=== PATIENT | male | born 1945 | race Caucasian/White ===

== ENCOUNTER → 2017-02-21 | Outpatient (CLI) | payer MEDICARE ==
--- NOTE | 2017-02-21 14:10 | RADIOLOGY REPORT (SQ) ---
EXAM DESCRIPTION: CTA HEAD; CTA NECK COMPLETED DATE/TIME: 02/21/2017 1:10 pm REASON FOR STUDY: CAROTID STENOSIS (I65.23) I65.23 OCCLUSION AND STENOSIS OF BILATERAL CAROTID HOLA EZIO COMPARISON: No prior brain imaging TECHNIQUE: Post IV contrast scanning, thin section axial imaging through the carotid system in the n [place] in the brain to evaluate the arterial structures. Source and MIP images are saved and reviewed on PACS. Advanced 3D imaging as volume-rendering, MIPs, SSD performed? yes All CT scanners at this facility use dose modulation, iterative reconstruction, and/or weight based d osing when appropriate to reduce radiation dose to as low as reasonably achievable (ALARA). [facility]: Dose Right [facility]: CareDose [facility]: Dose Right [facility]: Teradose 4D [facility]: [employer] CONTRAST TYPE AND DOSE: contrast/concentration: Isovue 370.00 mg/ml; Total Contrast Delivered: 80.0 ml; Total Saline Delivered: 75.0 ml RENAL FUNCTION: Creatinine 1.4 LIMITATIONS: None. FINDINGS: Aortic arch and origin of great vessels: Visualized aortic arch is normal, without evidence for thoracic aortic dissection. There is 50% narr owing of the proximal left subclavian artery at its origin from calcific plaque, best shown on axial images 18-22, and sagittal reconstruction images 72-76. Brachiocephalic artery, left common carotid artery are patent. Right carotid system: The right brachiocephalic artery, right common carotid artery are unremarkable. At the right carotid bifurcation, calcific plaque is present at the origin of the right internal patel tid artery with greater than 70% diameter stenosis on vascular diameter measurements, stenosis more c losely approximates 90%. Remainder of the cervical internal carotid artery is patent. External patel tid artery branches are patent. Left carotid system: Origin of the left arm carotid off the aorta is unremarkable. Left common carotid artery is unremark able. There is calcific plaque at the left carotid bifurcation with less than 50% diameter narrowing, best shown on sagittal reconstruction images 80-83, and axial images 52-59. Remainder of the cervical int ernal carotid artery is unremarkable. External carotid artery branches are patent. Extracranial vertebral arteries: On the right side, the vertebral artery is dominant, and widely patent from its origin to the skullba se. As the right vertebral artery enters the cranium, there is irregular atherosclerotic plaque caus ing at least 50% diameter narrowing best shown on axial images 81-84. On the left side, the origin of the vertebral artery is patent. At the level of the left C4-5 facet joint, there is very bulky bony spurring skullbase extrinsic compression of the left cervical vertebr al artery with greater than 70% narrowing. This is best shown on axial images 56-62, and sagittal re construction images 72-75. [place]: The anterior, middle, posterior cerebral arteries are all patent. No evidence of a neurysm or focal stenosis. POSTERIOR CIRCULATION: Right intracranial vertebral artery has about 50% diameter narrowing as it cr osses into the intracranial space as above. Remainder of the intracranial vertebral arteries are pat ent as is the basilar artery. No aneurysm. BRAIN: No gross enhancing lesions as visualized. The superior cerebral hemispheres are not included in the field of view. BONES: Intact as visualized. SINUSES: No fluid or mucosal thickening. OTHER: 5 to 6 mm nodule right lung apex axial image 23. IMPRESSION: Critical stenosis right carotid bifurcation with close to 90% proximal right ICA narrowi ng from calcific plaque No significant left carotid bifurcation stenosis 50% diameter narrowing right vertebral artery as it enters the cranial cavity Greater than 70% narrowing left cervical vertebral artery at the level of the left C4-5 facet from bu lky bony spurring COMMENT: Pertinent findings on the imaging study reported as a CRITICAL RESULT to CLINT HINTON MD at13:40 on 02/21/2017. Category of Critical Result: Critical stenosis right carotid bifurcation TECHNICAL DOCUMENTATION: JOB ID: [id number] Quality ID # [id number]: Final reports with documentation of one or more dose reduction techniques (e.g., Au tomated exposure control, adjustment of the mA and/or kV according to patient size, use of iterative reconstruction technique) 2010 [employer]- All Rights Reserved
--- NOTE | 2017-02-21 14:10 | RADIOLOGY REPORT (SQ) ---
EXAM DESCRIPTION: CTA HEAD; CTA NECK COMPLETED DATE/TIME: 02/21/2017 1:10 pm REASON FOR STUDY: CAROTID STENOSIS (I65.23) I65.23 OCCLUSION AND STENOSIS OF BILATERAL CAROTID HOLA EZIO COMPARISON: No prior brain imaging TECHNIQUE: Post IV contrast scanning, thin section axial imaging through the carotid system in the [place] in the brain to evaluate the arterial structures. Source and MIP images are saved and reviewed on PACS. Advanced 3D imaging as volume-rendering, MIPs, SSD performed? yes All CT scanners at this facility use dose modulation, iterative reconstruction, and/or weight based d osing when appropriate to reduce radiation dose to as low as reasonably achievable (ALARA). [facility]: Dose Right [facility]: CareDose [facility]: Dose Right [facility]: Teradose 4D [facility]: [employer] CONTRAST TYPE AND DOSE: contrast/concentration: Isovue 370.00 mg/ml; Total Contrast Delivered: 80.0 ml; Total Saline Delivered: 75.0 ml RENAL FUNCTION: Creatinine 1.4 LIMITATIONS: None. FINDINGS: Aortic arch and origin of great vessels: Visualized aortic arch is normal, without evidence for thoracic aortic dissection. There is 50% narr owing of the proximal left subclavian artery at its origin from calcific plaque, best shown on axial images 18-22, and sagittal reconstruction images 72-76. Brachiocephalic artery, left common carotid artery are patent. Right carotid system: The right brachiocephalic artery, right common carotid artery are unremarkable. At the right carotid bifurcation, calcific plaque is present at the origin of the right internal patel tid artery with greater than 70% diameter stenosis on vascular diameter measurements, stenosis more c losely approximates 90%. Remainder of the cervical internal carotid artery is patent. External patel tid artery branches are patent. Left carotid system: Origin of the left arm carotid off the aorta is unremarkable. Left common carotid artery is unremark able. There is calcific plaque at the left carotid bifurcation with less than 50% diameter narrowing, best shown on sagittal reconstruction images 80-83, and axial images 52-59. Remainder of the cervical int ernal carotid artery is unremarkable. External carotid artery branches are patent. Extracranial vertebral arteries: On the right side, the vertebral artery is dominant, and widely patent from its origin to the skullba se. As the right vertebral artery enters the cranium, there is irregular atherosclerotic plaque caus ing at least 50% diameter narrowing best shown on axial images 81-84. On the left side, the origin of the vertebral artery is patent. At the level of the left C4-5 facet joint, there is very bulky bony spurring skullbase extrinsic compression of the left cervical vertebr al artery with greater than 70% narrowing. This is best shown on axial images 56-62, and sagittal re construction images 72-75. [place]: The anterior, middle, posterior cerebral arteries are all patent. No evidence of a neurysm or focal stenosis. POSTERIOR CIRCULATION: Right intracranial vertebral artery has about 50% diameter narrowing as it cr osses into the intracranial space as above. Remainder of the intracranial vertebral arteries are pat ent as is the basilar artery. No aneurysm. BRAIN: No gross enhancing lesions as visualized. The superior cerebral hemispheres are not included in the field of view. BONES: Intact as visualized. SINUSES: No fluid or mucosal thickening. OTHER: 5 to 6 mm nodule right lung apex axial image 23. IMPRESSION: Critical stenosis right carotid bifurcation with close to 90% proximal right ICA narrowi ng from calcific plaque No significant left carotid bifurcation stenosis 50% diameter narrowing right vertebral artery as it enters the cranial cavity Greater than 70% narrowing left cervical vertebral artery at the level of the left C4-5 facet from bu lky bony spurring COMMENT: Pertinent findings on the imaging study reported as a CRITICAL RESULT to CILNT HINTON MD at13:40 on 02/21/2017. Category of Critical Result: Critical stenosis right carotid bifurcation TECHNICAL DOCUMENTATION: JOB ID: [id number] Quality ID # [id number]: Final reports with documentation of one or more dose reduction techniques (e.g., Au tomated exposure control, adjustment of the mA and/or kV according to patient size, use of iterative reconstruction technique) 2010 [employer]- All Rights Reserved
== END ==
LOC: RAD 12:25
PROVIDERS: ATTEND Internal Medicine Cardiovascular Disease
DX: I65.23 Occlusion and stenosis of bilateral carotid arteries (principal)
CPT/HCPCS: 70496; 70498; 82565

== ENCOUNTER → 2017-12-14 | Outpatient (CLI) | payer MEDICARE ==
[~2017-12-14] MED LIST: REGADENOSON INJ 0.4 MG/5 ML DISP.SYRIN IV ONE
--- NOTE | 2017-12-14 17:24 | DRAGON STRESS TEST REPORT ---
Intravenous Lexiscan Cardiolite stress test using single photon emmision computerized tomography. Date of procedure: 12/14/2017. Ordering Provider: Dr. Sukhwinder Banks. Patient's status: Out Patient. Indication: Coronary artery disease. Coronary risk factors: Age, diabetes, and hypertension. Resting EKG: Sinus Rhythm. Poor R-wave progression leads V1 to V6. T inversion in lead aVL. Stress EKG: No changes of ischemia. Reason for termination: Protocol. The patient had no chest pain or discomfort, and there were no arrhythmias seen. Conclusions: Normal EKG and hemodynamic response to IV Lexiscan. Nuclear data: At rest the patient was given 10.53 millicuries of technetium 99m sestamibi injected intravenously. As per protocol rest non gated SPECT images were obtained. Subsequently the patient was given intravenous Lexiscan at a dose of 0.4 mg in 5 mL intravenously, followed by flush with normal saline. Subsequently the stress dose of 30.0 millicuries of technetium 99m sestamibi was injected intravenously. As per protocol stress gated images were obtained. Nuclear interpretation: Review of images showed that all segments of the myocardium had normal perfusion at rest, and normal perfusion post stress with IV Lexiscan. All segments of the myocardium had normal motion, contraction, and thickening by gated study. T. I D. ratio was normal at 1.05. Computer read rest, and stress left ventricular ejection fraction were 58 %, and 53 %, respectively. Visually both the stress and rest ejection fractions were normal, and greater than 55%. Conclusion: 1. There is no scintigraphic evidence of Lexiscan induced myocardial ischemia. 2. There is no scintigraphic evidence of myocardial infarction/scar. Recommendations: Aggressive risk factor modification, and treating the underlying co- morbidities. MTDD
== END ==
LOC: RAD 07:42
PROVIDERS: ATTEND Family Medicine
DX: I25.84 Coronary atherosclerosis due to calcified coronary lesion (principal)
CPT/HCPCS: 93017; 78452; A9500; J2785; Q9969

== ENCOUNTER 2018-10-02 06:50 | Day surgery (SDC) | payer MEDICARE ==
[~2018-10-02 06:50] MED LIST changes: +BUPIVACAINE HCL 0.75% INJ/PF (7.5 MG/1 ML) 10 ML SDV OD PRN; +DORZOLAMIDE HCL 2%/TIMOLOL MALEAT 0.5% OPH SOLN 10 ML OD PRN; +KETOROLAC TROMETHAMINE 0.45% 4 DROP/0.4 ML DROPERETTE OD PRN; +LIDOCAINE 4% INJ/PF (40 MG/ML) 5 ML AMPUL OD PRN; -REGADENOSON INJ 0.4 MG/5 ML DISP.SYRIN IV ONE
[2018-10-02] MEDS: TETRACAINE HCL 0.5% OPH SOLN 0.6 ML DROPERETTE OD PRN ×2 (07:18→07:42)
[2018-10-02] MEDS: CYCLOPENTOLATE 0.2%/PHENYLEPHRINE 1% OPH SOLN 2 ML OD PRN ×3 (07:19→07:41)
[2018-10-02] MEDS: TROPICAMIDE 1% OPH SOLN 3 ML OD PRN ×3 (07:19→07:41)
[2018-10-02] MEDS: BESIFLOXACIN HCL 0.6% OPH SUSP 5 ML BOTTLE OD PRN ×3 (07:19→08:30)
[2018-10-02] MEDS ORDERED: FENTANYL CITRATE INJ/PF 100 MCG/2 ML AMPUL ONE (08:09)
[2018-10-02] MEDS ORDERED: MIDAZOLAM 2 MG/2 ML INJ ONE (08:09)
[2018-10-02] MEDS ORDERED: CHONDR SU A NA/HYALUR INTRAOC KIT (SURGICARE) ONE (08:20)
[2018-10-02] MEDS ORDERED: LIDOCAINE 1% INJ-PF (10 MG/ML) 30 ML SDV ONE (08:20)
[2018-10-02] MEDS ORDERED: EPINEPHRINE INJ/PF 1 MG/1 ML AMPULE ONE (08:20)
--- NOTE | 2018-10-02 08:48 | [facility] OPERATIVE REPORT E ---
[facility] Operative Report NAME: RAHEEM DIAZ AGE: 73Y DATE OF SURGERY: 10/02/2018 ROOM: PREOPERATIVE DIAGNOSIS: Cataract, right eye. POSTOPERATIVE DIAGNOSIS: Cataract, right eye. PROCEDURE PERFORMED: Phacoemulsification with posterior chamber intraocular lens, right eye. SURGEON: MILLER LORD M.D. ANESTHESIA: Topical with MAC. INDICATIONS FOR SURGERY: Difficulty reading road signs. PROCEDURE: The patient was brought to the operating room and placed on the operative table. Following tetracaine drops, topical anesthesia was administered. This consisted of instrument wipe pledgets soaked in a solution of 4% Xylocaine mixed with 0.75% Marcaine in a 1:2 ratio. A 2 x 1 cm pledget was placed in the superior fornix. A 1 x 1 cm pledget was placed in the inferior fornix. The eye was patched shut for 5 minutes. The patch was removed. The eye was sterilely prepped and draped in the usual manner. Lid speculum was placed in the eye. The pledgets were removed and 4-0 black silk sutures were placed around the superior and the inferior rectus muscles to be used as traction. A conjunctival peritomy was made at the 10 o'clock position. Hemostasis was obtained with bipolar cautery. A posterior limbal groove was created using a crescent knife and dissected anteriorly towards the cornea. A sharp point blade was used to create a paracentesis site at the 2 o'clock position. A 2.4 mm keratome was used to enter the anterior chamber through the groove. Viscoelastic was injected into the anterior chamber. An anterior capsulotomy was performed using Utrata forceps in a capsulorrhexis fashion. Hydrodissection and hydrodelineation were performed. Phacoemulsification was performed in [id number] technique. Total phaco time was 12.75 CDE. Following this, the I/A unit was used to remove residual cortex. Viscoelastic was injected into the capsular bag. Intraocular lens model SN60WF, 23.0 diopters, serial number [id number], was placed in the capsular bag. The I/A unit was used to remove residual viscoelastic. The wound was seen to be watertight under high and low pressure, and no sutures were placed. The intraocular lens was well centered. The pressure was adjusted in the eye to normal pressure. The 4-0 black silk sutures and lid speculum were removed. The eye was shielded after Besivance drops were placed. The patient tolerated the procedure well and was sent to the recovery room in good condition. DICTATING PHYSICIAN: MILLER LORD M.D. [id number] PHY#: [id number] ID: [id number] JOB#: [id number] ACCT: [id number] cc:MILLER LORD M.D. >
--- NOTE | 2018-10-02 08:48 | [facility] DISCHARGE SUMMARY E ---
[facility] Discharge Summary NAME: RAHEEM DIAZ AGE: 73Y ADMITTED: 10/02/2018 DISCHARGED: 10/02/2018 FINAL DIAGNOSIS: Cataract, right eye. HOSPITAL COURSE: The patient is a 73-year-old gentleman who underwent uneventful cataract extraction with intraocular lens implant, right eye, on 10/02/2018. He will be discharged to home. He was instructed to resume preoperative medications; to take Tylenol as needed for discomfort; to keep his eye shielded; to use Durezol, Prolensa, and Besivance at 3 p.m. and 8 p.m.; and to follow up in my office in 1 day. DICTATING PHYSICIAN: MILLER LORD M.D. [id number] PHY#: [id number] ID: [id number] JOB#: [id number] ACCT: [id number] cc:MILLER LORD M.D. >
== END 2018-10-02 09:17 | disposition home or self-care (01) ==
LOC: SC 06:50
PROVIDERS: ATTEND Ophthalmology
DX: H25.811 Combined forms of age-related cataract, right eye (principal); J44.9 Chronic obstructive pulmonary disease, unspecified; I10 Essential (primary) hypertension; E11.9 Type 2 diabetes mellitus without complications; E07.9 Disorder of thyroid, unspecified; G47.30 Sleep apnea, unspecified; Z79.51 Long term (current) use of inhaled steroids; Z87.891 Personal history of nicotine dependence; Z79.899 Other long term (current) drug therapy; Z79.84 Long term (current) use of oral hypoglycemic drugs
CPT/HCPCS: 66984; 82962; V2632; J2250; J3490 ×4; A9270; J0171; J3010; 142

== ENCOUNTER 2019-03-16 08:37 | Emergency (ER) | payer MEDICARE ==
--- NOTE | 2019-03-16 09:16 | ER Document Report ---
ED General - General Chief Complaint: Possible Kidney Stone Stated Complaint: FLANK PAIN Time Seen by Provider: 03/16/19 09:15 Primary Care Provider: TERENCE VALERIO MD [Primary Care Provider] - Follow up as needed TRAVEL OUTSIDE OF THE [place] IN LAST 30 DAYS: No - HPI Notes: 74 y/o presenting to ED for evaluation of 1 day of left flank pain after falling onto his left flank he has a h/o kidney stones and notes that his pain has been similar to a kidney stone and wanted to be sure he didn't have another stone because he has been told he he has a stone with horns on it no fever some nausea but no vomiting no blood in urine or pain w/ urination no bruising or skin changes to flank - Related Data Allergies/Adverse Reactions: No Known Allergies Allergy (Verified 03/16/19 08:39) Past Medical History - Social History Smoking Status: Unknown if Ever Smoked Family History: Reviewed & Not Pertinent - Past Medical History Cardiac Medical History: Reports: Hx Hypertension Denies: Hx Heart Attack Pulmonary Medical History: Denies: Hx Asthma Neurological Medical History: Denies: Hx Cerebrovascular Accident, Hx Seizures GI Medical History: Denies: Hx Hepatitis, Hx Hiatal Hernia, Hx Ulcer Infectious Medical History: Denies: Hx Hepatitis Past Surgical History: Denies: Hx Open Heart Surgery, Hx Pacemaker Review of Systems - Review of Systems Constitutional: No symptoms reported EENT: No symptoms reported Cardiovascular: No symptoms reported Respiratory: No symptoms reported Gastrointestinal: Abdominal pain, Nausea Genitourinary: No symptoms reported Male Genitourinary: No symptoms reported Musculoskeletal: No symptoms reported Skin: No symptoms reported Hematologic/Lymphatic: No symptoms reported Neurological/Psychological: No symptoms reported Physical Exam - Vital signs Vitals: Temp Pulse Resp BP Pulse Ox 98.3 F 98 16 130/84 H 97 03/16/19 08:42 03/16/19 08:42 03/16/19 08:42 03/16/19 08:42 03/16/19 08:42 Interpretation: Normal - General General appearance: Appears well, Alert - HEENT Head: Normocephalic, Atraumatic Eyes: Normal Pupils: PERRL - Respiratory Respiratory status: No respiratory distress Chest status: Nontender Breath sounds: Normal Chest palpation: Normal - Cardiovascular Rhythm: Regular Heart sounds: Normal auscultation Murmur: No - Abdominal Inspection: Normal Distension: No distension Bowel sounds: Normal Tenderness: Nontender Organomegaly: No organomegaly Notes: left flank pain to palpation - Back Back: Normal, Nontender - Extremities General upper extremity: Normal inspection, Nontender, Normal color, Normal ROM, Normal temperature General lower extremity: Normal inspection, Nontender, Normal color, Normal ROM, Normal temperature, Normal weight bearing. No: Yohana's sign - Neurological Neuro grossly intact: Yes Cognition: Normal Orientation: AAOx4 [place] Coma Scale Eye Opening: Spontaneous [place] Coma Scale Verbal: Oriented [place] Coma Scale Motor: Obeys Commands [place] Coma Scale Total: 15 Speech: Normal Motor strength normal: LUE, RUE, LLE, RLE Sensory: Normal - Psychological Associated symptoms: Normal affect, Normal mood - Skin Skin Temperature: Warm Skin Moisture: Dry Skin Color: Normal Course - Re-evaluation Re-evalutation: 03/16/19 13:27 CT w/ staghorn calculus w/ atrophic kidney mild renal insufficiency from baseline w/ mild hyperkalemia - hydration should help with this while in ED pain controlled given ivf and rocephin in ED discussed w/ Isabela Mena urology who agrees that the staghorn stone can be followed as outpt given that kidney is atrophic behind it will dc w/ cefdinir 03/16/19 13:37 - Vital Signs Vital signs: Temp Pulse Resp BP Pulse Ox 98.3 F 98 16 130/84 H 97 03/16/19 08:42 03/16/19 08:42 03/16/19 08:42 03/16/19 08:42 03/16/19 08:42 - Laboratory Result Diagrams: 03/16/19 10:35 03/16/19 10:35 Laboratory results interpreted by me: 03/16/19 03/16/19 03/16/19 10:35 10:35 10:35 RBC 4.00 L Hgb 12.3 L Hct 36.4 L Potassium 5.2 H Chloride 109 H Carbon Dioxide 18 L BUN 67 H Creatinine 2.26 H Est GFR ( Amer) 34 L Est GFR (MDRD) Non-Af 28 L Lipase 436.1 H Urine Protein 30 H Urine Blood LARGE H Ur Leukocyte Esterase MODERATE H Urine Ascorbic Acid 40 H - Diagnostic Test Radiology reviewed: Reports reviewed Discharge - Discharge Clinical Impression: Elevated blood pressure reading UTI (urinary tract infection) Qualifiers: Urinary tract infection type: acute cystitis Hematuria presence: with hematuria Qualified Code(s): N30.01 - Acute cystitis with hematuria CKD (chronic kidney disease) Qualifiers: Chronic kidney disease stage: unspecified stage Qualified Code(s): N18.9 - Chronic kidney disease, unspecified Pancreatitis Qualifiers: Chronicity: acute Pancreatitis type: idiopathic Condition: Stable Disposition: HOME, SELF-CARE Additional Instructions: follow up with urology as an outpatient return to the ED with worsening take medicine as directed Prescriptions: Ondansetron [Zofran Odt 4 mg Tablet] 1 - 2 tab PO Q4HP PRN #10 tab.rapdis PRN Reason: Cefdinir [Omnicef 300 mg Capsule] 1 cap PO BID #20 capsule Referrals: TERENCE VALERIO MD [Primary Care Provider] - Follow up as needed
--- NOTE | 2019-03-16 10:00 | RADIOLOGY REPORT (SQ) ---
EXAM DESCRIPTION: CT ABD/PELVIS NO ORAL OR IV COMPLETED DATE/TIME: 03/16/2019 9:42 am REASON FOR STUDY: calculus of ureter COMPARISON: None. TECHNIQUE: CT scan of the abdomen and pelvis performed without intravenous or oral contrast. Images reviewed with lung, soft tissue, and bone windows. Reconstructed coronal and sagittal MPR images revi ewed. All images stored on PACS. All CT scanners at this facility use dose modulation, iterative reconstruction, and/or weight based d osing when appropriate to reduce radiation dose to as low as reasonably achievable (ALARA). [facility]: Dose Right [facility]: CareDose [facility]: Dose Right [facility]: Teradose 4D [facility]: [employer] RADIATION DOSE: CT Rad equipment meets quality standard of care and radiation dose reduction techniq ues were employed. CTDIvol: 9.9 mGy. DLP: 582 mGy-cm.mGy. LIMITATIONS: None. FINDINGS: LOWER CHEST: Moderate to severe atherosclerotic calcification of the coronary arteries and aortic annulus. There is no pericardial effusion. Pleural calcifications - correlate for prior history of asbestos exposure. There are calcified nodul es in the right middle, right lower, and left lower lobe. There is no basilar consolidation or pleur al effusion. NON-CONTRASTED LIVER, SPLEEN, ADRENALS: Evaluation is limited due to the absence of intravenous contr ast. The liver morphology is non cirrhotic. There is a punctate calcification in the hepatic dome. The spleen is normal in size. There is no abnormality of the adrenal glands. PANCREAS: There is no abnormality of the pancreas. GALLBLADDER: No abnormality that is apparent on CT. RIGHT KIDNEY AND URETER: Evaluation is limited due to the absence of intravenous contrast. The corti darwin based hypodense lesions in the upper and lower poles measure simple fluid attenuation and could r epresent simple cyst. There is no hydronephrosis, nephrolithiasis, hydroureter or ureterolithiasis. LEFT KIDNEY AND URETER: Evaluation is limited due to the absence of intravenous contrast. There is a symmetric renal atrophy and a staghorn calculus in the renal pelvis that measures up to 3.4 x 3.1 cm on the coronal plane. There is no hydroureter or ureterolithiasis. AORTA AND RETROPERITONEUM: Atherosclerotic calcification of the abdominal aorta without aneurysmal di latation. There is no enlarged retroperitoneal adenopathy. BOWEL AND PERITONEAL CAVITY: Colonic diverticulosis without other findings of acute diverticulitis. There is no obstruction, bowel wall thickening, or pericolonic/ perienteric inflammation. There is n o free intraperitoneal fluid or mesenteric adenopathy. APPENDIX: Surgically absent. PELVIS, BLADDER, AND ABDOMINAL WALL:Evaluation of the pelvis is limited due to the artifact from the right ALEJANDRO. The prostate gland is normal in size. The urinary bladder is partially distended and nor mal in appearance. There is no pelvic adenopathy, free fluid or mass. There is a miniscule fat cont aining umbilical hernia. 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 There is no frac ture. OTHER: No other finding. IMPRESSION: 1. No acute intra-abdominal abnormality. 2. Pleural calcifications - correlate for history of asbestos exposure. 3. Staghorn calculus in the left kidney that measures up to 3.4 x 3.1 cm and is associated with atro phy of the renal parenchyma. 4. Colonic diverticulosis without other ancillary findings to suggest an acute diverticulitis. COMMENT: Quality ID # [id number]: Final reports with documentation of one or more dose reduction techniques (e.g., Automated exposure control, adjustment of the mA and/or kV according to patient size, use of iterative reconstruction technique) TECHNICAL DOCUMENTATION: JOB ID: [id number] [employer]- All Rights Reserved Reading location - IP/workstation name: [email or web address]
[2019-03-16 10:51] LABS: ABSOLUTE EOSINOPHILS # (AUTO) 0.2 10^3/uL (0.0-0.6); ABSOLUTE LYMPHOCYTES (AUTO) 1.2 10^3/uL (0.5-4.7); ABSOLUTE MONOCYTES (AUTO) 0.8 10^3/uL (0.1-1.4); ABSOLUTE NEUT (AUTO) 4.2 10^3/uL (1.7-8.2); BASOPHILS % (AUTO) 0.2 % (0-2); EOSINOPHILS % (AUTO) 3.2 % (0-6); HEMATOCRIT 36.4 % (37.9-51.0); HEMOGLOBIN 12.3 g/dL (13.5-17.0); LYMPHOCYTES % (AUTO) 19.3 % (13-45); MEAN CORPUSCULAR HEMOGLOBIN 30.7 pg (27.0-33.4); MEAN CORPUSCULAR HGB CONC 33.8 g/dL (32.0-36.0); MEAN CORPUSCULAR VOLUME 91 fl (80-97); MONOCYTES % (AUTO) 11.7 % (3-13); PLATELET COUNT 208 10^3/uL (150-450); RED CELL DISTRIBUTION WIDTH 12.6 % (11.5-14.0); SEGMENTED NEUTROPHILS % (AUTO) 65.6 % (42-78); TOTAL CELLS COUNTED % (AUTO) 100 %; WHITE BLOOD COUNT 6.4 10^3/uL (4.0-10.5)
[2019-03-16 11:03] LABS: APPEARANCE,URINE SLIGHTLY-CLOUDY; BILIRUBIN,URINE NEGATIVE (NEGATIVE); COLOR,URINE YELLOW; GLUCOSE, URINE NEGATIVE (NEGATIVE); KETONES,URINE NEGATIVE (NEGATIVE); LEUKOCYTE ESTERASE,URINE MODERATE (NEGATIVE); NITRITE,URINE NEGATIVE (NEGATIVE); PROTEIN,URINE 30 mg/dL (NEGATIVE); URINE SPECIFIC GRAVITY 1.013; UROBILINOGEN,URINE NEGATIVE mg/dL (<2.0)
[2019-03-16 11:08] LABS: ALBUMIN 4.2 g/dL (3.5-5.0); ALKALINE PHOSPHATASE 63 U/L (38-126); ANION GAP 13 (5-19); ASPARTATE AMINO TRANSFERASE 18 U/L (17-59); BILIRUBIN,DIRECT 0.2 mg/dL (0.0-0.4); BILIRUBIN,TOTAL 0.3 mg/dL (0.2-1.3); BLOOD UREA NITROGEN 67 mg/dL (7-20); CALCIUM 9.7 mg/dL (8.4-10.2); CARBON DIOXIDE 18 mmol/L (22-30); CHLORIDE 109 mmol/L (98-107); GLUCOSE 110 mg/dL (75-110); POTASSIUM 5.2 mmol/L (3.6-5.0); TOTAL PROTEIN 6.9 g/dL (6.3-8.2)
[2019-03-16] MEDS ORDERED: CEFTRIAXONE 1 GM/D5W RTU 1 GM/50 ML RTUPB IV ONE (11:54)
[2019-03-16] MEDS ORDERED: NORMAL SALINE 1000 ML 1,000 ML IV ONE (11:54)
[2019-03-16 14:01] VITALS: BP 126/71
== END 2019-03-16 14:00 | disposition home or self-care (01) ==
LOC: ER 08:37
DX: N30.01 Acute cystitis with hematuria (principal); I12.9 Hypertensive chronic kidney disease with stage 1 through stage 4 chronic kidney disease, or unspecified chronic kidney disease; N18.9 Chronic kidney disease, unspecified; K85.00 Idiopathic acute pancreatitis without necrosis or infection; N20.0 Calculus of kidney; R10.9 Unspecified abdominal pain; W17.89XA Other fall from one level to another, initial encounter; Y93.89 Activity, other specified; E87.5 Hyperkalemia; R11.0 Nausea; I10 Essential (primary) hypertension
CPT/HCPCS: 36415; 83690; 85025; 80053; 81001; 74176; J7030; J0696; 96361; 96365; 99284

== ENCOUNTER → 2019-05-02 | Outpatient (CLI) | payer MEDICARE ==
--- NOTE | 2019-05-02 09:43 | RADIOLOGY REPORT (SQ) ---
EXAM DESCRIPTION: CT ABD/PELVIS NO ORAL OR IV COMPLETED DATE/TIME: 05/02/2019 9:10 am REASON FOR STUDY: (N20.0)CALCULUS OF KIDNEY N20.0 CALCULUS OF KIDNEY COMPARISON: 03/16/2019 TECHNIQUE: CT scan of the abdomen and pelvis performed without intravenous or oral contrast. Images reviewed with lung, soft tissue, and bone windows. Reconstructed coronal and sagittal MPR images revi ewed. All images stored on PACS. All CT scanners at this facility use dose modulation, iterative reconstruction, and/or weight based d osing when appropriate to reduce radiation dose to as low as reasonably achievable (ALARA). [facility]: Dose Right [facility]: CareDose [facility]: Dose Right [facility]: Teradose 4D [facility]: Smart eSpark RADIATION DOSE: CT Rad equipment meets quality standard of care and radiation dose reduction techniq ues were employed. CTDIvol: 9.9 mGy. DLP: 599 mGy-cm.mGy. LIMITATIONS: None. FINDINGS: LOWER CHEST: Coronary atherosclerosis. Pleural calcifications bilaterally, similar to ana or. NON-CONTRASTED LIVER, SPLEEN, ADRENALS: Evaluation limited by lack of IV contrast. No identified sign ificant masses. Unchanged calcified hepatic granuloma. PANCREAS: No masses. No peripancreatic inflammatory changes. GALLBLADDER: No identified stones by CT criteria. No inflammatory changes to suggest cholecystitis. RIGHT KIDNEY AND URETER: No suspicious masses. Assessment limited by lack of IV contrast. Unchanged lower pole cyst. Punctate nonobstructing lower pole calcifications. No hydronephrosis or hydroure ter. LEFT KIDNEY AND URETER: No suspicious masses. Assessment limited by lack of IV contrast. There is b een interval placement of a left-sided percutaneous nephrostomy catheter which appears in appropriate location. Decreased stone burden compared to prior exam. Residual nonobstructing stones within the upper pole and interpolar region, largest measuring 14 x 8 mm (Hounsfield units 304). Nonspecific p erinephric stranding. No hydroureteronephrosis. AORTA AND RETROPERITONEUM: Aortoiliac atherosclerosis without aneurysm. No retroperitoneal mass, eros nopathy or hemorrhage. BOWEL AND PERITONEAL CAVITY: Scattered colonic diverticula. Mild ill-defined stranding about the sig moid colon and splenic flexure with trace pericolonic fluid. No formed drainable collection. No oracio e intraperitoneal gas. APPENDIX: Surgically absent. PELVIS, BLADDER, AND ABDOMINAL WALL:Decompressed. No focal wall thickening. BONES: No acute bony abnormality. No suspicious lytic or blastic osseous lesions. Mild lower lumbar facet arthropathy. Partially visualized right hip hardware. OTHER: No other significant finding. IMPRESSION: 1. Interval placement of a left-sided percutaneous nephrostomy catheter within appropri ate location. No hydronephrosis. Decreased left-sided stone burden with residual nonobstructing sto neal as above. 2. Scattered colonic diverticula with mild stranding and trace fluid about the sigmoid colon and spl enic flexure possibly sequelae of diverticulitis. Recommend correlation with patient symptoms. Trac e pelvic ascites. No focal drainable collection or large volume pneumoperitoneum. 3. Additional chronic findings as above. COMMENT: Quality ID # [id number]: Final reports with documentation of one or more dose reduction techniques (e.g., Automated exposure control, adjustment of the mA and/or kV according to patient size, use of iterative reconstruction technique) TECHNICAL DOCUMENTATION: JOB ID: [id number] [employer]- All Rights Reserved Reading location - IP/workstation name: [email or web address]
== END ==
LOC: RAD 08:56
PROVIDERS: ATTEND Urology
DX: N20.0 Calculus of kidney (principal); K57.30 Diverticulosis of large intestine without perforation or abscess without bleeding
CPT/HCPCS: 74176

== ENCOUNTER 2019-06-25 15:24 | Inpatient (IN) | payer MEDICARE ==
[2019-06-25] MEDS ORDERED: ONDANSETRON HCL INJ/PF 4 MG/2 ML SDV IV ONE (16:06)
[2019-06-25] MEDS ORDERED: NORMAL SALINE 1000 ML 1,000 ML IV ONE (16:06)
[2019-06-25] MEDS ORDERED: ACETAMINOPHEN 325 MG TABLET PO ONE (16:06)
--- NOTE | 2019-06-25 16:07 | ER Document Report ---
ED Medical Screen (RME) - General Chief Complaint: Abdominal Pain Stated Complaint: FEVER Time Seen by Provider: 06/25/19 16:01 Primary Care Provider: LILY MUNOZ DPM [Primary Care Provider] - Follow up as needed Information source: Patient Notes: Patient presents with a three-week history of nausea vomiting diarrhea intermittent abdominal pain and cough. Patient states that he had a fever of 101.5. Patient would like to have lab work to evaluate his blood sugar and be tested for the flu as well. Patient has a history of kidney stones hypertension and diabetes. I have greeted and performed a rapid initial assessment of this patient. A comprehensive ED assessment and evaluation of the patient, analysis of test results and completion of the medical decision making process will be conducted by additional ED providers. TRAVEL OUTSIDE OF THE [place] IN LAST 30 DAYS: No - Related Data Allergies/Adverse Reactions: No Known Allergies Allergy (Verified 06/25/19 16:00) Past Medical History - Past Medical History Cardiac Medical History: Reports: Hx Hypercholesterolemia, Hx Hypertension Denies: Hx Heart Attack Pulmonary Medical History: Denies: Hx Asthma Neurological Medical History: Denies: Hx Cerebrovascular Accident, Hx Seizures Endocrine Medical History: Reports: Hx Diabetes Mellitus Type 2 Renal/ Medical History: Reports: Hx Kidney Stones - Stage 3 kidney disease from stones GI Medical History: Denies: Hx Hepatitis, Hx Hiatal Hernia, Hx Ulcer Infectious Medical History: Denies: Hx Hepatitis Past Surgical History: Denies: Hx Open Heart Surgery, Hx Pacemaker Physical Exam - Vital signs Vitals: Temp Pulse Resp BP Pulse Ox 98.6 F 111 H 16 148/71 H 97 06/25/19 15:28 06/25/19 15:28 06/25/19 15:28 06/25/19 15:28 06/25/19 15:28 - General General appearance: Appears well, Alert - Cardiovascular Rhythm: Tachycardia Heart sounds: S1 appreciated, S2 appreciated Course - Vital Signs Vital signs: Temp Pulse Resp BP Pulse Ox 98.6 F 111 H 16 148/71 H 97 06/25/19 15:28 06/25/19 15:28 06/25/19 15:28 06/25/19 15:28 06/25/19 15:28 Doctor's Discharge - Discharge Referrals: LILY MUNOZ DPM [Primary Care Provider] - Follow up as needed
[2019-06-25 16:44] LABS: ABSOLUTE LYMPHOCYTES (AUTO) 0.9 10^3/uL (0.5-4.7); ABSOLUTE MONOCYTES (AUTO) 0.7 10^3/uL (0.1-1.4); ABSOLUTE NEUT (AUTO) 7.1 10^3/uL (1.7-8.2); BASOPHILS % (AUTO) 0.5 % (0-2); HEMATOCRIT 34.6 % (37.9-51.0); HEMOGLOBIN 11.8 g/dL (13.5-17.0); LYMPHOCYTES % (AUTO) 10.2 % (13-45); MEAN CORPUSCULAR HEMOGLOBIN 30.8 pg (27.0-33.4); MEAN CORPUSCULAR HGB CONC 34.1 g/dL (32.0-36.0); MEAN CORPUSCULAR VOLUME 90 fl (80-97); MONOCYTES % (AUTO) 8.5 % (3-13); PLATELET COUNT 309 10^3/uL (150-450); RED BLOOD COUNT 3.83 10^6/uL (4.35-5.55); RED CELL DISTRIBUTION WIDTH 13.4 % (11.5-14.0); SEGMENTED NEUTROPHILS % (AUTO) 80.8 % (42-78); TOTAL CELLS COUNTED % (AUTO) 100 %; WHITE BLOOD COUNT 8.7 10^3/uL (4.0-10.5)
--- NOTE | 2019-06-25 16:52 | RADIOLOGY REPORT (SQ) ---
EXAM DESCRIPTION: CHEST 2 VIEWS COMPLETED DATE/TIME: 06/25/2019 4:39 pm REASON FOR STUDY: cough COMPARISON: None. EXAM PARAMETERS: NUMBER OF VIEWS: two views TECHNIQUE: Digital Frontal and Lateral radiographic views of the chest acquired. RADIATION DOSE: NA LIMITATIONS: none FINDINGS: LUNGS AND PLEURA: Calcific pleural plaques are present over the right and left upper chest . No focal infiltrates. No pleural effusion. No pneumothorax. MEDIASTINUM AND HILAR STRUCTURES: No masses or contour abnormalities. HEART AND VASCULAR STRUCTURES: Heart normal size. No evidence for failure. BONES: Arthritis both shoulders HARDWARE: None in the chest. OTHER: No other significant finding. IMPRESSION: NO ACUTE RADIOGRAPHIC FINDING IN THE CHEST. TECHNICAL DOCUMENTATION: JOB ID: [id number] [employer]- All Rights Reserved Reading location - IP/workstation name: [email or web address]
[2019-06-25 17:07] LABS: ALBUMIN 4.2 g/dL (3.5-5.0); ALKALINE PHOSPHATASE 68 U/L (38-126); ANION GAP 16 (5-19); ASPARTATE AMINO TRANSFERASE 27 U/L (17-59); BILIRUBIN,DIRECT 0.3 mg/dL (0.0-0.4); BILIRUBIN,TOTAL 0.4 mg/dL (0.2-1.3); BLOOD UREA NITROGEN 48 mg/dL (7-20); CALCIUM 9.4 mg/dL (8.4-10.2); CARBON DIOXIDE 20 mmol/L (22-30); CHLORIDE 102 mmol/L (98-107); GLUCOSE 201 mg/dL (75-110); POTASSIUM 4.5 mmol/L (3.6-5.0); TOTAL PROTEIN 7.5 g/dL (6.3-8.2)
[2019-06-25 17:32] LABS: APPEARANCE,URINE CLOUDY; BILIRUBIN,URINE NEGATIVE (NEGATIVE); COLOR,URINE YELLOW; GLUCOSE, URINE NEGATIVE (NEGATIVE); KETONES,URINE NEGATIVE (NEGATIVE); LEUKOCYTE ESTERASE,URINE LARGE (NEGATIVE); NITRITE,URINE NEGATIVE (NEGATIVE); PROTEIN,URINE 30 mg/dL (NEGATIVE); URINE SPECIFIC GRAVITY 1.015; UROBILINOGEN,URINE NEGATIVE mg/dL (<2.0)
[2019-06-25 17:35] LABS: A TYPE INFLUENZA AG NEGATIVE (NEGATIVE); B INFLUENZA AG NEGATIVE (NEGATIVE)
--- NOTE | 2019-06-25 17:36 | ER Document Report ---
ED General - General Chief Complaint: Abdominal Pain Stated Complaint: FEVER Time Seen by Provider: 06/25/19 16:01 Primary Care Provider: LILY MUNOZ DPM [Primary Care Provider] - Follow up as needed TRAVEL OUTSIDE OF THE [place] IN LAST 30 DAYS: No - HPI Notes: Mr. Acharya is a 74-year-old male with a chief complaint of malaise and fever of 3 days duration. Fever is intermittent and has been subjective and not taken at home. He was seen in urgent care center and sent here with concern about possible urinary tract infection. We note that this man who is intermittently had some soreness in his left flank area and recently had a nephrostomy removed from this area which been placed for renal stones by Dr. Jane (urology). Slight loss of appetite. Mild nausea. No vomiting. No dysuria. Slight nonproductive cough. Pertinent prior history: Baseline renal insufficiency with usual creatinine around 2.5. Previous history of right carotid endarterectomy. Patient remains on Plavix. History of hyperlipidemia. Previous right hip replacement. Previous appendectomy. Type II diabetic on oral agent with sugars averaging 1 50-1 60 at home by fingerstick. Denies smoking or abuse of alcohol. No known allergies. - Related Data Allergies/Adverse Reactions: No Known Allergies Allergy (Verified 06/25/19 16:00) Past Medical History - General Information source: Patient - Social History Smoking Status: Former Smoker Family History: Reviewed & Not Pertinent Patient has suicidal ideation: No Patient has homicidal ideation: No - Past Medical History Cardiac Medical History: Reports: Hx Hypercholesterolemia, Hx Hypertension Denies: Hx Heart Attack Pulmonary Medical History: Denies: Hx Asthma Neurological Medical History: Denies: Hx Cerebrovascular Accident, Hx Seizures Endocrine Medical History: Reports: Hx Diabetes Mellitus Type 2 Renal/ Medical History: Reports: Hx Kidney Stones - Stage 3 kidney disease from stones GI Medical History: Denies: Hx Hepatitis, Hx Hiatal Hernia, Hx Ulcer Infectious Medical History: Denies: Hx Hepatitis Past Surgical History: Reports: Hx Appendectomy, Hx Kidney (Renal Surgery) - Kidney stones remova, Hx Orthopedic Surgery - hip replacement, Hx Vascular Surgery - left neck artery. Denies: Hx Open Heart Surgery, Hx Pacemaker Review of Systems - Review of Systems Notes: Constitutional: As per HPI. HENT: Negative for sore throat. Eyes: Negative for visual changes. Cardiovascular: Negative for chest pain. Respiratory: As per HPI. Gastrointestinal: As per HPI. Genitourinary: Negative for dysuria. Musculoskeletal: Intermittent dull pain left flank area. Skin: Negative for rash. Neurological: Negative for headaches, weakness or numbness. 10 point ROS negative except as marked above and in HPI. Physical Exam - Vital signs Vitals: Temp Pulse Resp BP Pulse Ox 98.6 F 111 H 16 148/71 H 97 06/25/19 15:28 06/25/19 15:28 06/25/19 15:28 06/25/19 15:28 06/25/19 15:28 - Notes Notes: GENERAL: Well-developed well-nourished man of approximately stated age appearing in no acute distress. SKIN: Good turgor. Scattered ecchymoses of both forearms. HEAD: Normocephalic atraumatic. EYES: PERRLA. EOMI. Conjunctivae and sclerae clear. EARS: CANALS AND TMS CLEAR. NOSE: CLEAR. MOUTH: Moist mucosa. Dentures present. No stridor or edema. No drooling. NECK: Supple. No masses or thyromegaly. No adenopathy. Carotids 2+ without bruits. No JVD. BACK: Symmetrical without tenderness. Healed nephrostomy scar on the left. CHEST: Respirations unlabored. Breath sounds clear and symmetrical. HEART: Regular rhythm. No murmur gallop or rub. ABDOMEN: Soft mildly obese. Nontender without masses, organomegaly or rebound. Bowel sounds normally active. No bruits. GENITALIA: Deferred. EXTREMITIES: No edema. No calf tenderness. Cap refill less than 1.5 seconds. Dorsalis pedis and posterior tibial pulses 3+ and symmetrical. NEUROLOGICAL: GCS 15. Alert and oriented x3. Normal gait. Fluent speech. Cranial nerves II through XII intact. Sensorimotor and cerebellar normal. Normal tone. PSYCHIATRIC: Appropriate affect. Course - Vital Signs Vital signs: Temp Pulse Resp BP Pulse Ox 98.9 F 82 18 106/67 99 06/25/19 19:28 06/25/19 19:38 06/25/19 19:38 06/25/19 20:00 06/25/19 20:01 - Laboratory Result Diagrams: 06/25/19 16:20 06/25/19 16:20 Laboratory results interpreted by me: 06/25/19 06/25/19 06/25/19 16:20 16:20 16:20 RBC 3.83 L Hgb 11.8 L Hct 34.6 L Lymph % (Auto) 10.2 L Seg Neutrophils % 80.8 H Carbon Dioxide 20 L BUN 48 H Creatinine 2.41 H Est GFR ( Amer) 32 L Est GFR (MDRD) Non-Af 26 L Glucose 201 H Urine Protein 30 H Urine Blood SMALL H Ur Leukocyte Esterase LARGE H - Diagnostic Test Radiology reviewed: Reports reviewed - Chest x-ray reported as normal per r adiologist. Discharge - Discharge Clinical Impression: Acute pyelonephritis Chronic renal insufficiency Qualifiers: Chronic kidney disease stage: unspecified stage Qualified Code(s): N18.9 - Chronic kidney disease, unspecified Condition: Good Disposition: ADMITTED INPATIENT Admitting Provider: Tyson (Hospitalist) Unit Admitted: Telemetry Referrals: LILY MUNOZ DPM [Primary Care Provider] - Follow up as needed
[2019-06-25] MEDS ORDERED: PIPERACILLIN/TAZOBACTAM 3.375 GM VIAL IV ONE (18:06)
[2019-06-25] MEDS ORDERED: VANCOMYCIN HCL INJ 1000 MG VIAL IV ONE (18:06)
--- NOTE | 2019-06-25 18:23 | RADIOLOGY REPORT (SQ) ---
EXAM DESCRIPTION: CT ABD/PELVIS NO ORAL OR IV COMPLETED DATE/TIME: 06/25/2019 6:11 pm REASON FOR STUDY: flank pain and fever COMPARISON: 05/02/2019 TECHNIQUE: CT scan of the abdomen and pelvis performed without intravenous or oral contrast. Images reviewed with lung, soft tissue, and bone windows. Reconstructed coronal and sagittal MPR images revi ewed. All images stored on PACS. All CT scanners at this facility use dose modulation, iterative reconstruction, and/or weight based d osing when appropriate to reduce radiation dose to as low as reasonably achievable (ALARA). [facility]: Dose Right [facility]: CareDose [facility]: Dose Right [facility]: Teradose 4D [facility]: SnapMD RADIATION DOSE: mGy. LIMITATIONS: None. FINDINGS: LOWER CHEST: No significant findings. No nodules or infiltrates. NON-CONTRASTED LIVER, SPLEEN, ADRENALS: Evaluation limited by lack of IV contrast. No identified sign ificant masses. PANCREAS: No masses. No peripancreatic inflammatory changes. GALLBLADDER: No calcified stones. No inflammatory changes to suggest cholecystitis. RIGHT KIDNEY AND URETER: Similar cysts identified. No solid masses. Similar calcified stones. No hyd ronephrosis or hydroureter. LEFT KIDNEY AND URETER: Similar atrophy. No solid masses. Similar calcified stones and mild left hyd ronephrosis - proximal hydroureter. AORTA AND RETROPERITONEUM: No aneurysm. No retroperitoneal masses or adenopathy. BOWEL AND PERITONEAL CAVITY: No obvious masses or inflammatory changes. No free fluid. APPENDIX: Surgically absent. PELVIS, BLADDER, AND ABDOMINAL WALL:No abnormal masses. No free fluid. Unremarkable bladder. BONES: No acute findings. OTHER: No other significant finding. IMPRESSION: Similar bilateral calcified stones and mild left hydronephrosis - proximal hydroureter. TECHNICAL DOCUMENTATION: JOB ID: [id number] Quality ID # [id number]: Final reports with documentation of one or more dose reduction techniques (e.g., Au tomated exposure control, adjustment of the mA and/or kV according to patient size, use of iterative reconstruction technique) 2010 [employer]- All Rights Reserved Reading location - IP/workstation name: [email or web address]
[2019-06-25] MEDS ORDERED: GLUCAGON,HUMAN RECOMB 1 MG INJ IM PRN (20:58)
[2019-06-25] MEDS ORDERED: DEXTROSE 50%-WATER 25 GM/50 ML DISP.SYRIN IV PRN ×2 (20:58)
[2019-06-25] MEDS ORDERED: DEXTROSE 40% GEL 15 GM TUBE PO PRN ×2 (20:58)
[2019-06-25] MEDS ORDERED: ONDANSETRON HCL INJ/PF 4 MG/2 ML SDV IV PRN (20:58)
[2019-06-25] MEDS ORDERED: MAG HYDROX/AL HYDROX/SIMETH SUSP 30 ML UDCUP PO PRN (20:58)
[2019-06-25] MEDS ORDERED: MAGNESIUM HYDROXIDE SUSP 30 ML UDCUP PO PRN (20:58)
[2019-06-25] MEDS ORDERED: VANCOMYCIN HCL 0 MG in DEXTROSE 5%-WATER 250 ML IV NR (21:00)
[2019-06-25] MEDS ORDERED: NORMAL SALINE 1000 ML 1,000 ML IV SCH (21:00)
[2019-06-25] MEDS: ACETAMINOPHEN 325 MG TABLET PO PRN (23:26)
[2019-06-25] MEDS: PIPERACILLIN SODIUM/TAZOBACTAM 3.375 GM in NORMAL SALINE 100 ML IV SCH (23:54)
[2019-06-25] MEDS: HEPARIN SOD (PORCINE) 5,000 UNIT/ML 1 ML VIAL SUBCUT SCH (23:55)
[2019-06-26] MEDS: PIPERACILLIN SODIUM/TAZOBACTAM 3.375 GM in NORMAL SALINE 100 ML IV SCH (05:18)
[2019-06-26] MEDS: HEPARIN SOD (PORCINE) 5,000 UNIT/ML 1 ML VIAL SUBCUT SCH ×3 (05:19→21:20)
--- NOTE | 2019-06-26 05:25 | PDOC H&P ---
History of Present Illness Admission Date/PCP: 06/25/19 21:06 LILY MUNOZ DPM Patient complains of: Fever History of Present Illness: RAHEEM DIAZ is a 74 year old male with a past medical history of diabetes, stage IV chronic kidney disease, recurrent urinary tract infection complicated by nephrolithiasis requiring nephrostomy tube by Dr. Jane at [facility]. Tube was last removed 3 weeks ago and completed an oral antibiotic regiment. Over the last 3 days he has had fever prompting evaluation in urgent care is referred to the emergency department. He is found to have fever, pyuria and a CT with residual hydronephrosis without obstruction or abscess. He started on empiric antibiotics and referred to the hospitalist for admission. Patient admits feeling better since therapy had initiated denying chest pain nausea or vomiting. Past Medical History Cardiac Medical History: Reports: Hyperlipidema, Hypertension Denies: Myocardial Infarction Pulmonary Medical History: Denies: Asthma Neurological Medical History: Denies: Seizures Endocrine Medical History: Reports: Diabetes Mellitus Type 2 Renal/ Medical History: Reports: Chronic Kidney Disease, Nephrolithiasis GI Medical History: Denies: Hepatitis, Hiatal Hernia Hematology: Denies: Anemia, Sickle Cell Disease Past Surgical History Past Surgical History: Reports: Appendectomy, Orthopedic Surgery - hip replacement, Vascular Surgery - left neck artery Denies: Pacemaker Social History Information Source: Patient Lives with: Spouse/Significant other Smoking Status: Never Smoker Electronic Cigarette use?: No Frequency of Alcohol Use: None Hx Recreational Drug Use: No Drugs: None Hx Prescription Drug Abuse: No - Advance Directive Resuscitation Status: Full Code Family History Family History: Hypertension Parental Family History Reviewed: No Children Family History Reviewed: No Sibling(s) Family History Reviewed.: No Medication/Allergy Home Medications: Acetaminophen [Tylenol 325 mg Tablet] 500 mg PO DAILYP PRN 06/25/19 Atorvastatin Calcium [Lipitor 40 mg Tablet] 40 mg PO QHS 06/25/19 Clopidogrel Bisulfate [Plavix 75 mg Tablet] 75 mg PO QPM 06/25/19 Levothyroxine Sodium [Synthroid 0.1 mg Tablet] 0.1 mg PO QPM 06/25/19 Lisinopril/Hydrochlorothiazide [Lisinopril-Hctz 20-25 mg Tab] 1 each PO QAM 06/25/19 Metformin HCl [Metformin HCl ER] 1,000 mg PO BID 06/25/19 Montelukast Sodium [Singulair 10 mg Tablet] 10 mg PO QAM 06/25/19 Sitagliptin Phosphate [Januvia 50 mg Tablet] 50 mg PO QPM 06/25/19 Allergies/Adverse Reactions: No Known Allergies Allergy (Verified 06/25/19 16:00) Review of Systems Constitutional: ABSENT: chills, fever(s), headache(s), weight gain, weight loss Eyes: ABSENT: visual disturbances Ears: ABSENT: hearing changes Cardiovascular: ABSENT: chest pain, dyspnea on exertion, edema, orthropnea, palpitations Respiratory: ABSENT: cough, hemoptysis Gastrointestinal: ABSENT: abdominal pain, constipation, diarrhea, hematemesis, hematochezia, nausea, vomiting Genitourinary: ABSENT: dysuria, hematuria Musculoskeletal: ABSENT: joint swelling Integumentary: ABSENT: rash, wounds Neurological: ABSENT: abnormal gait, abnormal speech, confusion, dizziness, focal weakness, syncope Psychiatric: ABSENT: anxiety, depression, homidical ideation, suicidal ideation Endocrine: ABSENT: cold intolerance, heat intolerance, polydipsia, polyuria Hematologic/Lymphatic: ABSENT: easy bleeding, easy bruising Physical Exam Vital Signs: Temp Pulse Resp BP Pulse Ox 99.3 F 79 18 121/64 99 06/26/19 04:34 06/26/19 04:34 06/26/19 04:34 06/26/19 04:34 06/26/19 04:34 Intake & Output 06/24/19 06/25/19 06/26/19 11:59 11:59 11:59 Intake Total 1100 Balance 1100 Weight 83.5 kg General appearance: PRESENT: no acute distress, well-developed, well-nourished Head exam: PRESENT: atraumatic, normocephalic Eye exam: PRESENT: conjunctiva pink, EOMI, PERRLA. ABSENT: scleral icterus Ear exam: PRESENT: normal external ear exam Mouth exam: PRESENT: moist, tongue midline Neck exam: ABSENT: carotid bruit, JVD, lymphadenopathy, thyromegaly Respiratory exam: PRESENT: clear to auscultation sandra. ABSENT: rales, rhonchi, wheezes Cardiovascular exam: PRESENT: RRR. ABSENT: diastolic murmur, rubs, systolic murmur Pulses: PRESENT: normal dorsalis pedis pul Vascular exam: PRESENT: normal capillary refill GI/Abdominal exam: PRESENT: normal bowel sounds, soft. ABSENT: distended, guarding, mass, organolmegaly, rebound, tenderness Rectal exam: PRESENT: deferred Extremities exam: PRESENT: full ROM. ABSENT: calf tenderness, clubbing, pedal edema Neurological exam: PRESENT: alert, awake, oriented to person, oriented to place, oriented to time, oriented to situation, CN II-XII grossly intact. ABSENT: motor sensory deficit Psychiatric exam: PRESENT: appropriate affect, normal mood. ABSENT: homicidal ideation, suicidal ideation Skin exam: PRESENT: dry, intact, warm. ABSENT: cyanosis, rash Results Laboratory Results: 06/25/19 16:20 06/25/19 16:20 06/25/19 06/25/19 06/25/19 16:20 16:20 16:20 WBC 8.7 RBC 3.83 L Hgb 11.8 L Hct 34.6 L MCV 90 MCH 30.8 MCHC 34.1 RDW 13.4 Plt Count 309 Seg Neutrophils % 80.8 H Sodium 137.8 Potassium 4.5 Chloride 102 Carbon Dioxide 20 L Anion Gap 16 BUN 48 H Creatinine 2.41 H Est GFR ( Amer) 32 L Glucose 201 H Lactic Acid Calcium 9.4 Total Bilirubin 0.4 AST 27 Alkaline Phosphatase 68 Total Protein 7.5 Albumin 4.2 Lipase 96.8 Urine Color YELLOW Urine Appearance CLOUDY Urine pH 5.0 Ur Specific [place] 1.015 Urine Protein 30 H Urine Glucose (UA) NEGATIVE Urine Ketones NEGATIVE Urine Blood SMALL H Urine Nitrite NEGATIVE Ur Leukocyte Esterase LARGE H Urine WBC (Auto) >182 Urine RBC (Auto) 4 06/25/19 17:55 WBC RBC Hgb Hct MCV MCH MCHC RDW Plt Count Seg Neutrophils % Sodium Potassium Chloride Carbon Dioxide Anion Gap BUN Creatinine Est GFR ( Amer) Glucose Lactic Acid 1.2 Calcium Total Bilirubin AST Alkaline Phosphatase Total Protein Albumin Lipase Urine Color Urine Appearance Urine pH Ur Specific [place] Urine Protein Urine Glucose (UA) Urine Ketones Urine Blood Urine Nitrite Ur Leukocyte Esterase Urine WBC (Auto) Urine RBC (Auto) Impressions: Chest X-Ray 06/25/19 16:06 IMPRESSION: NO ACUTE RADIOGRAPHIC FINDING IN THE CHEST. Abdomen/Pelvis CT 06/25/19 17:31 IMPRESSION: Similar bilateral calcified stones and mild left hydronephrosis - proximal hydroureter. Assessment and Plan - Diagnosis (1) Diabetes Is this a current diagnosis for this admission?: Yes Plan: Hold Januvia and metformin, Humalog sliding scale ordered, follow-up A1c (2) Acute pyelonephritis Is this a current diagnosis for this admission?: Yes Plan: Complicated by chronic nephrolithiasis, no obstruction or abscess, empiric antibiotics, follow-up records from [facility] for microbiology, blood and urine culture (3) Chronic renal insufficiency Qualifiers: Chronic kidney disease stage: unspecified stage Qualified Code(s): N18.9 - Chronic kidney disease, unspecified Is this a current diagnosis for this admission?: Yes Plan: IV fluid challenge, avoid nephrotoxic meds and doses follow-up chemistry. - Time Time Spent with patient: 25-34 minutes - Inpatient Certification Medical Necessity: Need Close Monitoring Due to Risk of Patient Decompensation
[2019-06-26 05:49] LABS: ABSOLUTE EOSINOPHILS # (AUTO) 0.1 10^3/uL (0.0-0.6); ABSOLUTE MONOCYTES (AUTO) 0.5 10^3/uL (0.1-1.4); ABSOLUTE NEUT (AUTO) 4.1 10^3/uL (1.7-8.2); BASOPHILS % (AUTO) 0.3 % (0-2); EOSINOPHILS % (AUTO) 1.3 % (0-6); HEMATOCRIT 27.1 % (37.9-51.0); LYMPHOCYTES % (AUTO) 18.2 % (13-45); MEAN CORPUSCULAR HEMOGLOBIN 30.8 pg (27.0-33.4); MEAN CORPUSCULAR HGB CONC 34.6 g/dL (32.0-36.0); MEAN CORPUSCULAR VOLUME 89 fl (80-97); PLATELET COUNT 217 10^3/uL (150-450); RED BLOOD COUNT 3.04 10^6/uL (4.35-5.55); RED CELL DISTRIBUTION WIDTH 13.2 % (11.5-14.0); SEGMENTED NEUTROPHILS % (AUTO) 71.2 % (42-78); TOTAL CELLS COUNTED % (AUTO) 100 %; WHITE BLOOD COUNT 5.7 10^3/uL (4.0-10.5)
[2019-06-26 05:51] LABS: HEMOGLOBIN 9.4 g/dL (13.5-17.0)
[2019-06-26 06:07] LABS: ANION GAP 11 (5-19); BLOOD UREA NITROGEN 45 mg/dL (7-20); CALCIUM 8.3 mg/dL (8.4-10.2); CARBON DIOXIDE 21 mmol/L (22-30); CHLORIDE 106 mmol/L (98-107); GLUCOSE 136 mg/dL (75-110); POTASSIUM 4.1 mmol/L (3.6-5.0)
[2019-06-26] MEDS: ACETAMINOPHEN 325 MG TABLET PO PRN (07:27)
[2019-06-26] MEDS: INSULIN LISPRO 100 UNIT/ML 3 ML VIAL SUBCUT SCH ×3 (08:33→18:47)
--- NOTE | 2019-06-26 09:59 | PDOC PROGRESS REPORT ---
Subjective Progress Note for:: 06/26/19 Subjective:: Patient is resting in bed. His is at the bedside. He is somewhat flushed. He complains of some lower abdominal discomfort but it is not severe. He also reports some dysuria. He did ask if he could go home today. Reason For Visit: UTI NEPHROLITH, DM Physical Exam Vital Signs: Temp Pulse Resp BP Pulse Ox 99.7 F 85 16 116/56 L 99 06/26/19 07:25 06/26/19 07:25 06/26/19 07:25 06/26/19 07:25 06/26/19 07:25 Intake & Output 06/25/19 06/26/19 06/27/19 06:59 06:59 06:59 Intake Total 1450 Output Total 400 Balance 1050 Weight 83.9 kg General appearance: PRESENT: no acute distress, cooperative, well-developed. ABSENT: disheveled Head exam: PRESENT: atraumatic, normocephalic Ear exam: PRESENT: normal external ear exam. ABSENT: bleeding, drainage Mouth exam: PRESENT: moist, tongue midline Respiratory exam: PRESENT: clear to auscultation sandra, rales - Faint at bases, symmetrical, unlabored. ABSENT: accessory muscle use, rhonchi, tachypnea, wheezes Cardiovascular exam: PRESENT: RRR, +S1, +S2, other - Distant sounds GI/Abdominal exam: PRESENT: normal bowel sounds, soft. ABSENT: distended, guarding, tenderness Extremities exam: PRESENT: full ROM. ABSENT: pedal edema Musculoskeletal exam: PRESENT: ambulatory, full ROM, normal inspection Neurological exam: PRESENT: alert, awake, oriented to person, oriented to place, oriented to time, oriented to situation, CN II-XII grossly intact Psychiatric exam: PRESENT: flat affect. ABSENT: agitated, anxious Focused psych exam: ABSENT: delusional, restlessness Skin exam: PRESENT: other - Facial flushing Results Laboratory Results: 06/26/19 04:51 06/26/19 04:51 06/25/19 06/25/19 06/25/19 16:20 16:20 16:20 WBC 8.7 RBC 3.83 L Hgb 11.8 L Hct 34.6 L MCV 90 MCH 30.8 MCHC 34.1 RDW 13.4 Plt Count 309 Seg Neutrophils % 80.8 H Sodium 137.8 Potassium 4.5 Chloride 102 Carbon Dioxide 20 L Anion Gap 16 BUN 48 H Creatinine 2.41 H Est GFR ( Amer) 32 L Glucose 201 H Lactic Acid Calcium 9.4 Total Bilirubin 0.4 AST 27 Alkaline Phosphatase 68 Total Protein 7.5 Albumin 4.2 Lipase 96.8 Urine Color YELLOW Urine Appearance CLOUDY Urine pH 5.0 Ur Specific [place] 1.015 Urine Protein 30 H Urine Glucose (UA) NEGATIVE Urine Ketones NEGATIVE Urine Blood SMALL H Urine Nitrite NEGATIVE Ur Leukocyte Esterase LARGE H Urine WBC (Auto) >182 Urine RBC (Auto) 4 06/25/19 06/26/19 06/26/19 17:55 04:51 04:51 WBC 5.7 RBC 3.04 L Hgb 9.4 L D Hct 27.1 L MCV 89 MCH 30.8 MCHC 34.6 RDW 13.2 Plt Count 217 Seg Neutrophils % 71.2 Sodium 138.3 Potassium 4.1 Chloride 106 Carbon Dioxide 21 L Anion Gap 11 BUN 45 H Creatinine 2.36 H Est GFR ( Amer) 33 L Glucose 136 H Lactic Acid 1.2 Calcium 8.3 L Total Bilirubin AST Alkaline Phosphatase Total Protein Albumin Lipase Urine Color Urine Appearance Urine pH Ur Specific [place] Urine Protein Urine Glucose (UA) Urine Ketones Urine Blood Urine Nitrite Ur Leukocyte Esterase Urine WBC (Auto) Urine RBC (Auto) Impressions: Chest X-Ray 06/25/19 16:06 IMPRESSION: NO ACUTE RADIOGRAPHIC FINDING IN THE CHEST. Abdomen/Pelvis CT 06/25/19 17:31 IMPRESSION: Similar bilateral calcified stones and mild left hydronephrosis - proximal hydroureter. Assessment and Plan - Diagnosis (1) Acute pyelonephritis Is this a current diagnosis for this admission?: Yes Plan: 06/26/2019-the patient was recently hospitalized with nephrostomy tubes for urinary obstruction for nephrolithiasis. The tubes have been pulled. The patient has a positive urine culture for gram-negative bacilli. With his recent hospitalization there is a possibility of a resistant organism and therefore I will keep him on his current antibiotic regimen until further information is obtained. Sensitivity should be ready by tomorrow. I anticipate discharge tomorrow on oral antibiotics. (2) Diabetes Qualifiers: Diabetes mellitus type: type 2 Diabetes mellitus complication status: with kidney complications Diabetes mellitus complication detail: with chronic kidney disease Chronic kidney disease stage: stage 4 (severe) Is this a current diagnosis for this admission?: Yes Plan: 06/26/2019-the patient's GFR is above 30 and so I have resumed his metformin. He is also on Januvia. Continue Accu-Cheks and sliding scale coverage. (3) Chronic renal insufficiency Qualifiers: Chronic kidney disease stage: unspecified stage Qualified Code(s): N18.9 - Chronic kidney disease, unspecified Is this a current diagnosis for this admission?: Yes Plan: 06/26/2019-currently with stage IV chronic kidney disease. I am not sure what his state of chronic disease was before the urinary obstruction from nephroli thiasis but he is currently at stage IV. We will continue to monitor. (4) Hypertension Qualifiers: Hypertension type: essential hypertension Qualified Code(s): I10 - Essential (primary) hypertension Is this a current diagnosis for this admission?: Yes Plan: 06/26/2019-we will continue current regimen. Blood pressure is reasonably controlled at this time. Adjust medications if indicated. (5) Hypothyroidism Qualifiers: Hypothyroidism type: unspecified Qualified Code(s): E03.9 - Hypothyroidism, unspecified Is this a current diagnosis for this admission?: Yes Plan: 06/26/2019-we will continue patient's current dose of levothyroxine. - Time Time Spent with patient: 15-24 minutes Medications reviewed and adjusted accordingly: Yes Anticipated discharge: Home Within: within 48 hours
[2019-06-26] MEDS ORDERED: (PENDING PHARMACY ID) (Metformin Hcl [Metformin Hcl Er] 1,000 MG) PO SCH (10:00)
[2019-06-26] MEDS: DOCUSATE SODIUM 100 MG CAPSULE PO SCH ×2 (10:09→18:51)
[2019-06-26] MEDS: HYDROCHLOROTHIAZIDE 25 MG TABLET PO SCH (10:09)
[2019-06-26] MEDS: METFORMIN HCL 500 MG TABLET PO SCH ×4 (10:10→21:22)
[2019-06-26] MEDS: LISINOPRIL 10 MG TABLET PO SCH (10:10)
[2019-06-26] MEDS: PIPERACILLIN SODIUM/TAZOBACTAM 2.25 GM in NORMAL SALINE 50 ML IV SCH ×2 (12:11→18:52)
[2019-06-26] MEDS ORDERED: LEVOTHYROXINE SODIUM 0.1 MG TABLET PO SCH (18:00)
[2019-06-26] MEDS ORDERED: VANCOMYCIN HCL 750 MG in DEXTROSE 5%-WATER 250 ML IV SCH (18:00)
[2019-06-26] MEDS ORDERED: SITAGLIPTIN PHOSPHATE 50 MG TABLET PO SCH (18:00)
[2019-06-26] MEDS ORDERED: CLOPIDOGREL BISULFATE 75 MG TABLET PO SCH (18:00)
[2019-06-26] MEDS ORDERED: ATORVASTATIN CALCIUM 40 MG TABLET PO SCH (22:00)
[2019-06-27] MEDS: PIPERACILLIN SODIUM/TAZOBACTAM 2.25 GM in NORMAL SALINE 50 ML IV SCH ×2 (01:00→05:35)
[2019-06-27] MEDS: HEPARIN SOD (PORCINE) 5,000 UNIT/ML 1 ML VIAL SUBCUT SCH (05:36)
[2019-06-27] MEDS ORDERED: (PENDING PHARMACY ID) (Lisinopril/Hydrochlorothiazide [Lisinopril-Hctz 20-25 Mg Tab] 1 EAC PO SCH (08:00)
[2019-06-27] MEDS ORDERED: MONTELUKAST SODIUM 10 MG TABLET PO SCH (08:00)
[2019-06-27] MEDS: INSULIN LISPRO 100 UNIT/ML 3 ML VIAL SUBCUT SCH ×2 (09:29→12:36)
[2019-06-27] MEDS: HYDROCHLOROTHIAZIDE 25 MG TABLET PO SCH (09:30)
[2019-06-27] MEDS: LISINOPRIL 10 MG TABLET PO SCH (09:31)
[2019-06-27] MEDS: METFORMIN HCL 500 MG TABLET PO SCH (09:32)
[2019-06-27] MEDS: DOCUSATE SODIUM 100 MG CAPSULE PO SCH (09:33)
[2019-06-27] MEDS ORDERED: LEVOFLOXACIN 750 MG TABLET PO ONE (11:33)
--- NOTE | 2019-06-27 11:50 | PDOC DISCHARGE SUMMARY ---
Impression - Admit/DC Date/PCP Admission Date/Primary Care Provider: 06/25/19 21:06 LILY TAMMYTRENA ESCOBAR Discharge Date: 06/27/19 - Discharge Diagnosis (1) Acute pyelonephritis Is this a current diagnosis for this admission?: Yes (2) Diabetes Is this a current diagnosis for this admission?: Yes (3) Chronic renal insufficiency Is this a current diagnosis for this admission?: Yes (4) Hypertension Is this a current diagnosis for this admission?: Yes (5) Hypothyroidism Is this a current diagnosis for this admission?: Yes (6) Renal calculus, bilateral Is this a current diagnosis for this admission?: Yes - Assessment Summary: The patient has had recurrent issues with urinary calculi. He has required open surgical procedures to remove some of the stones. Approximately 3 weeks ago he had a nephrostomy tube removed that was placed secondary to obstruction. He had been having fevers for the last several days. Evaluation revealed pyuria. CT scan showed small stones bilaterally with a small residual hydronephrosis. No evidence of acute obstruction. He was started on antibiotics and admitted by the hospital service. - Additional Information Resuscitation Status: Full Code Discharge Diet: Diabetic Discharge Activity: Activity As Tolerated Referrals: TERENCE VALERIO MD [NO LOCAL MD] - GILA MORTON MD [NO LOCAL MD] - (As soon as possible) Prescriptions: Levofloxacin [Levaquin 750 mg Tablet] 750 mg PO Q48H 8 Days #4 tablet Home Medications: Acetaminophen [Tylenol 325 mg Tablet] 500 mg PO DAILYP PRN 06/25/19 Atorvastatin Calcium [Lipitor 40 mg Tablet] 40 mg PO QHS 06/25/19 Clopidogrel Bisulfate [Plavix 75 mg Tablet] 75 mg PO QPM 06/25/19 Levothyroxine Sodium [Synthroid 0.1 mg Tablet] 0.1 mg PO QPM 06/25/19 Lisinopril/Hydrochlorothiazide [Lisinopril-Hctz 20-25 mg Tab] 1 each PO QAM 06/25/19 Metformin HCl [Metformin HCl ER] 1,000 mg PO BID 06/25/19 Montelukast Sodium [Singulair 10 mg Tablet] 10 mg PO QAM 06/25/19 Sitagliptin Phosphate [Januvia 50 mg Tablet] 50 mg PO QPM 06/25/19 Levofloxacin [Levaquin 750 mg Tablet] 750 mg PO Q48H 8 Days #4 tablet 06/27/19 History of Present Illiness History of Present Illness: RAHEEM DIAZ is a 74 year old male with a history of diabetes, stage IV chronic kidney disease and nephrolithiasis with recurrent infection and surgical removal. Presentation is as above. Hospital Course Hospital Course: Unremarkable hospital course. The patient was started on dual antibiotic therapy. Urine culture results showed Serratia marcescens. It was fairly sensitive. I have discharged the patient on levofloxacin as the final sensitivities were not available at the time of discharge. Because of his kidney failure he will be on levofloxacin 750 mg every 48 hours for a total of 5 doses. With the antibiotic therapy the patient's symptoms improved. Physical Exam Vital Signs: Temp Pulse Resp BP Pulse Ox 98.8 F 79 14 120/68 98 06/27/19 08:00 06/27/19 08:00 06/27/19 08:00 06/27/19 08:00 06/27/19 08:00 Intake & Output 06/26/19 06/27/19 06/28/19 06:59 06:59 06:59 Intake Total 1450 1980 Output Total 400 500 Balance 1050 1480 Weight 83.9 kg 83.5 kg General appearance: PRESENT: no acute distress, cooperative, well-developed Head exam: PRESENT: atraumatic, normocephalic Respiratory exam: PRESENT: clear to auscultation sandra, symmetrical, unlabored. ABSENT: rales, rhonchi, tachypnea, wheezes Cardiovascular exam: PRESENT: RRR, +S1, +S2 GI/Abdominal exam: PRESENT: normal bowel sounds, soft. ABSENT: distended, tenderness Rectal exam: PRESENT: deferred Musculoskeletal exam: PRESENT: ambulatory, full ROM, normal inspection Neurological exam: PRESENT: alert, awake, oriented to person, oriented to place, oriented to time, oriented to situation Psychiatric exam: ABSENT: agitated, anxious Results Laboratory Results: WBC 5.7 10^3/uL (4.0-10.5) 06/26/19 04:51 RBC 3.04 10^6/uL (4.35-5.55) L 06/26/19 04:51 Hgb 9.4 g/dL (13.5-17.0) L D 06/26/19 04:51 Hct 27.1 % (37.9-51.0) L 06/26/19 04:51 MCV 89 fl (80-97) 06/26/19 04:51 MCH 30.8 pg (27.0-33.4) 06/26/19 04:51 MCHC 34.6 g/dL (32.0-36.0) 06/26/19 04:51 RDW 13.2 % (11.5-14.0) 06/26/19 04:51 Plt Count 217 10^3/uL (150-450) 06/26/19 04:51 Lymph % (Auto) 18.2 % (13-45) 06/26/19 04:51 M[place]reary % (Auto) 9.0 % (3-13) 06/26/19 04:51 Eos % (Auto) 1.3 % (0-6) 06/26/19 04:51 Baso % (Auto) 0.3 % (0-2) 06/26/19 04:51 Absolute Neuts (auto) 4.1 10^3/uL (1.7-8.2) 06/26/19 04:51 Absolute Lymphs (auto) 1.0 10^3/uL (0.5-4.7) 06/26/19 04:51 Absolute Monos (auto) 0.5 10^3/uL (0.1-1.4) 06/26/19 04:51 Absolute Eos (auto) 0.1 10^3/uL (0.0-0.6) 06/26/19 04:51 Absolute Basos (auto) 0.0 10^3/uL (0.0-0.2) 06/26/19 04:51 Seg Neutrophils % 71.2 % (42-78) 06/26/19 04:51 Sodium 138.3 mmol/L (137-145) 06/26/19 04:51 Potassium 4.1 mmol/L (3.6-5.0) 06/26/19 04:51 Chloride 106 mmol/L (98-107) 06/26/19 04:51 Carbon Dioxide 21 mmol/L (22-30) L 06/26/19 04:51 Anion Gap 11 (5-19) 06/26/19 04:51 BUN 45 mg/dL (7-20) H 06/26/19 04:51 Creatinine 2.36 mg/dL (0.52-1.25) H 06/26/19 04:51 Est GFR ( Amer) 33 (>60) L 06/26/19 04:51 Est GFR (MDRD) Non-Af 27 (>60) L 06/26/19 04:51 Glucose 136 mg/dL (75-110) H 06/26/19 04:51 POC Glucose 102 mg/dL (70-110) 06/27/19 08:50 Lactic Acid 1.2 mmol/L (0.7-2.1) 06/25/19 17:55 Calcium 8.3 mg/dL (8.4-10.2) L 06/26/19 04:51 Total Bilirubin 0.4 mg/dL (0.2-1.3) 06/25/19 16:20 Direct Bilirubin 0.3 mg/dL (0.0-0.4) 06/25/19 16:20 Neonat Total Bilirubin Not Reportable 06/25/19 16:20 Neonat Direct Bilirubin Not Reportable 06/25/19 16:20 Neonat Indirect Bili Not Reportable 06/25/19 16:20 AST 27 U/L (17-59) 06/25/19 16:20 ALT 20 U/L (<50) 06/25/19 16:20 Alkaline Phosphatase 68 U/L (38-126) 06/25/19 16:20 Total Protein 7.5 g/dL (6.3-8.2) 06/25/19 16:20 Albumin 4.2 g/dL (3.5-5.0) 06/25/19 16:20 Lipase 96.8 U/L (23-300) 06/25/19 16:20 Urine Color YELLOW 06/25/19 16:20 Urine Appearance CLOUDY 06/25/19 16:20 Urine pH 5.0 (5.0-9.0) 06/25/19 16:20 Ur Specific [place] 1.015 06/25/19 16:20 Urine Protein 30 mg/dL (NEGATIVE) H 06/25/19 16:20 Urine Glucose (UA) NEGATIVE mg/dL (NEGATIVE) 06/25/19 16:20 Urine Ketones NEGATIVE mg/dL (NEGATIVE) 06/25/19 16:20 Urine Blood SMALL (NEGATIVE) H 06/25/19 16:20 Urine Nitrite NEGATIVE (NEGATIVE) 06/25/19 16:20 Urine Bilirubin NEGATIVE (NEGATIVE) 06/25/19 16:20 Urine Urobilinogen NEGATIVE mg/dL (<2.0) 06/25/19 16:20 Ur Leukocyte Esterase LARGE (NEGATIVE) H 06/25/19 16:20 Urine WBC (Auto) >182 /HPF 06/25/19 16:20 Urine RBC (Auto) 4 /HPF 06/25/19 16:20 Urine Bacteria (Auto) TRACE /HPF 06/25/19 16:20 Urine WBC Clumps FEW /HPF 06/25/19 16:20 Urine Mucus (Auto) RARE /LPF 06/25/19 16:20 Urine Ascorbic Acid NEGATIVE (NEGATIVE) 06/25/19 16:20 Influenza A (Rapid) NEGATIVE (NEGATIVE) 06/25/19 16:10 Influenza B (Rapid) NEGATIVE (NEGATIVE) 06/25/19 16:10 Impressions: Chest X-Ray 06/25/19 16:06 IMPRESSION: NO ACUTE RADIOGRAPHIC FINDING IN THE CHEST. Abdomen/Pelvis CT 06/25/19 17:31 IMPRESSION: Similar bilateral calcified stones and mild left hydronephrosis - proximal hydroureter. Plan Health Concerns: Recurrent nephrolithiasis Plan of Treatment: Resume previous medications with the addition of levofloxacin. Follow-up with Dr. Morton within the next 5 to 7 days. Goals: Resolution of kidney stones Time Spent: Greater than 30 Minutes Stroke Is this a Stroke Patient?: No Acute Heart Failure - Is this a Heart Failure Patient?: No
[2019-06-27 13:13] VITALS: BP 111/60
== END 2019-06-27 13:00 | disposition home or self-care (01) | DRG 690 ==
LOC: ER 15:24 → EH 21:06 → 5 22:08
PROVIDERS: ADMIT Internal Medicine; ATTEND Internal Medicine
DX: N10 Acute pyelonephritis (principal); N18.4 Chronic kidney disease, stage 4 (severe); I12.9 Hypertensive chronic kidney disease with stage 1 through stage 4 chronic kidney disease, or unspecified chronic kidney disease; E11.22 Type 2 diabetes mellitus with diabetic chronic kidney disease; N20.0 Calculus of kidney; E03.9 Hypothyroidism, unspecified; E78.5 Hyperlipidemia, unspecified; Z96.641 Presence of right artificial hip joint; Z79.01 Long term (current) use of anticoagulants; Z79.84 Long term (current) use of oral hypoglycemic drugs; Z79.899 Other long term (current) drug therapy
CPT/HCPCS: 36415; 71046; 74176; 80048; 80053; 81001; 82962; 83605; 83690; 85025; 87040; 87086; 87088; 87186; 87804; 96361; 96365; 96367; 96375; 99285; J1644; J1815; J2405; J2543; J3370; J7030; J7050; J7060

== ENCOUNTER 2019-07-23 09:52 | Day surgery (SDC) | payer MEDICARE ==
[~2019-07-23 09:52] MED LIST changes: -BUPIVACAINE HCL 0.75% INJ/PF (7.5 MG/1 ML) 10 ML SDV OD PRN; -DORZOLAMIDE HCL 2%/TIMOLOL MALEAT 0.5% OPH SOLN 10 ML OD PRN; -KETOROLAC TROMETHAMINE 0.45% 4 DROP/0.4 ML DROPERETTE OD PRN; -LIDOCAINE 4% INJ/PF (40 MG/ML) 5 ML AMPUL OD PRN; +PROPOFOL INJ 200 MG/20 ML VIAL IV ONE
[2019-07-23 11:35] VITALS: BP 99/58
--- NOTE | 2019-07-23 13:06 | Operative Report ---
Operative Report DATE OF SURGERY: 07/23/19 Operative Report: The risk, benefits and alternatives of the procedure including the risk of bleeding, perforation requiring surgery have been explained to the patient in detail and informed consent has been obtained. The patient is taken back to the endoscopy suite placed in a left, lateral decubital position. Timeout was called. Propofol medication is administered. Rectal examination is done which did not reveal any masses, tears or fissures. An Olympus videoscope was introduced into the patient's rectum. Scope was then carefully advanced all the way to the cecum. The cecum was identified by the usual anatomical landmarks of the ileocecal valve as well as the appendiceal office. Photodocumentation is obtained. Scope was then sequentially pulled back via the various segments of the colon including the ascending colon, hepatic flexure, transverse colon, sp lenic flexure, descending colon finding to the rectosigmoid portions of the colon. Retroflexion maneuver is performed. The risks benefits and alternatives of the procedure explained to the patient in detail and informed consent is obtained.A GIF Olympus video scope was inserted into the patient's mouth and hypopharynx, the esophagus is identified intubated and insufflated, the scope was then advanced through the esophagus stomach and duodenum, retroflexion maneuver is done, the esophagus stomach and first and second portions of the duodenum examined PREOPERATIVE DIAGNOSIS: Heme positive stool, abdominal pain, nausea vomiting, change in bowel habits POSTOPERATIVE DIAGNOSIS: Diverticulosis without any evidence of diverticulitis. Internal hemorrhoids. Gastritis status post biopsy OPERATION: Diagnostic colonoscopy. EGD with biopsy SURGEON: KHLOE OREILLY ANESTHESIA: LMAC TISSUE REMOVED OR ALTERED: As noted above. COMPLICATIONS: None. ESTIMATED BLOOD LOSS: None. INTRAOPERATIVE FINDINGS: As noted above. PROCEDURE: Patient tolerated the procedure well. No immediate postprocedure complications are noted. Patient is discharged in good condition. Discharge date 07/23/2019. Discharge diet: Regular. Discharge activity: Regular. 2 to 3-week follow-up to discuss findings. Patient is instructed to call the office or proceed to the emergency room should there be any further problems or questions. Wait on the pathology.
== END 2019-07-23 11:33 | disposition home or self-care (01) ==
LOC: END 09:52
PROVIDERS: ATTEND Internal Medicine Gastroenterology
DX: K57.30 Diverticulosis of large intestine without perforation or abscess without bleeding (principal); K64.8 Other hemorrhoids; K29.50 Unspecified chronic gastritis without bleeding; K21.9 Gastro-esophageal reflux disease without esophagitis; Z87.891 Personal history of nicotine dependence; Z79.84 Long term (current) use of oral hypoglycemic drugs; J44.9 Chronic obstructive pulmonary disease, unspecified; Z79.899 Other long term (current) drug therapy
CPT/HCPCS: 43239; 45378; 82962; 88342 ×2; 88305 ×2; 00813; J2704; 813